=== PATIENT | female | born 1975 | race American Indian/Alaskan Native ===

== ENCOUNTER 2020-06-07 17:13 | Observation (INO) | payer BC ==
[2020-06-07] MEDS ORDERED: ASPIRIN 325 MG TAB PO ONE (17:36)
[2020-06-07 18:13] LABS: Basophils # (Auto) 0.1 K/mm3 (0.0-0.1); Basophils % (Auto) 1.3 % (0.0-1.8); Eosinophils # (Auto) 0.3 K/mm3 (0.0-0.4); Hematocrit 40.2 % (30.3-42.9); Hemoglobin 13.7 gm/dl (10.1-14.3); Lymphocytes # (Auto) 2.8 K/mm3 (1.2-5.4); Lymphocytes % (Auto) 39.4 % (13.4-35.0); Mean Corpuscular HGB Conc 34 % (30-34); Mean Corpuscular Volume 90 fl (79-97); Monocytes # (Auto) 0.5 K/mm3 (0.0-0.8); Monocytes % (Auto) 7.1 % (0.0-7.3); Platelet Count 300 K/mm3 (140-440); Red Blood Count 4.48 M/mm3 (3.65-5.03); Red Cell Distribution Width 13.5 % (13.2-15.2)
--- NOTE | 2020-06-07 18:38 | XRay Report ---
CHEST 2 VIEWS 1748 INDICATION / CLINICAL INFORMATION: CP COMPARISON: 12/11/2017 FINDINGS: SUPPORT DEVICES: None. HEART / MEDIASTINUM: No significant abnormality. LUNGS / PLEURA: Calcified granuloma is again seen on the right. No acute infiltrates are seen. No ple ural effusions are noted. No pneumothorax. ADDITIONAL FINDINGS: No significant additional findings. IMPRESSION: No significant acute abnormality Signer Name: Kj Mathews MD Signed: 06/07/2020 6:33 PM Workstation Name: [id number]
[2020-06-07 18:39] LABS: Alanine Aminotransferase 23 units/L (7-56); Albumin 4.2 g/dL (3.9-5); Blood Urea Nitrogen 14 mg/dL (7-17); Calcium 9.1 mg/dL (8.4-10.2); Hemolysis Index 3
[2020-06-07 18:40] LABS: BUN/Creatinine Ratio 23
--- NOTE | 2020-06-07 18:44 | Emergency Department Report ---
Blank Doc - Documentation Documentation: 45-year-old female that presents with chest pain and shortness of breath. 1- This initial assessment/diagnostic orders/clinical plan/ treatment(s) is/are subject to change based on pt's health status, clinical progression and re- assessment by fellow clinical providers in the ED. Further treatment and workup at subsequent clinical provers discretion. Patient/guardians urged not to elope from ED as their condition may be serious if not clinically assessed and managed. 2-cardiac work-up \
[2020-06-07 19:16] LABS: INR 0.94 (0.87-1.13)
[2020-06-07 19:17] LABS: Partial Thromboplastin Time 26.4 Sec. (24.2-36.6)
[2020-06-07 19:54] LABS: Bilirubin,Urine NEG (Negative); Blood,Urine NEG (Negative); Color,Urine Yellow (Yellow); Mucus,Urine FEW /HPF; Protein,Urine <15 mg/dL mg/dL (Negative); Urobilinogen,Urine < 2.0 mg/dL (<2.0)
[2020-06-07] MEDS: NITROGLYCERIN 0.4 MG TAB SUBL SL PRN ×2 (20:37→21:15)
--- NOTE | 2020-06-07 23:02 | Cat Scan Report ---
CTA CHEST WITH CONTRAST INDICATION / CLINICAL INFORMATION: Shortness of breath and elevated d-dimer. TECHNIQUE: Axial CT images were obtained through the chest after injection of 100 cc Omnipaque 350 IV contrast. 3 plane MIP and/or 3D reconstructions were produced. All CT scans at this location are per formed using CT dose reduction for ALARA by means of automated exposure control. COMPARISON: None available. FINDINGS: PULMONARY ARTERIES: There is adequate opacification of the pulmonary arterial system bilaterally with out intraluminal filling defect suggest acute PTE. THORACIC AORTA: No significant abnormality. HEART: No significant abnormality. CORONARY ARTERY CALCIFICATION: None. MEDIASTINUM / MILAGRO: No significant abnormality. PLEURA: No pleural effusion. No pneumothorax. LUNGS: No acute air space or interstitial disease. ADDITIONAL FINDINGS: None. UPPER ABDOMEN: No acute findings. SKELETAL STRUCTURES: No significant osseous abnormality. IMPRESSION: 1. No CT evidence for pulmonary embolism. 2. No acute findings. Signer Name: Michael Blair MD Signed: 06/07/2020 10:58 PM Workstation Name: [id number]
[2020-06-07] MEDS ORDERED: ONDANSETRON 4 MG/2 ML INJ IV ONE (23:43)
[2020-06-07] MEDS ORDERED: MORPHINE 4 MG/1 ML INJ IV ONE (23:43)
--- NOTE | 2020-06-08 01:51 | Emergency Department Report ---
ED Chest Pain HPI - General Chief Complaint: Chest Pain Stated Complaint: CHEST PAIN X 3 DAYS Time Seen by Provider: 06/07/20 18:42 Source: patient Mode of arrival: Ambulatory Limitations: No Limitations - History of Present Illness Initial Comments: Patient is a 45-year-old -[place] female with a history of morbid obesity, hypertension, TIA, [id number] diabetes, chronic migraine headaches, chronic osteoarthritis, chronic recurrent kidney stones who presents to the ED with complaint of acute onset persistent left-sided chest pain that radiates to the left shoulder and left arm for the last 6 days. Patient states that the pain has been constant and persistent despite taking Aleve. Patient states that she was initially evaluated at an urgent care clinic 2 days ago and given a prescription of Aleve and advised to follow-up with her primary care physician. Patient states that the pain has gotten worse in the last 24 hours. Patient denies dizziness, syncope, cough, traumatic injury, fall, heavy lifting, diaphoresis, nausea and vomiting or abdominal pain, back pain, neck pain, headache, change in vision, sore throat, seizures or palpitations. MD Complaint: chest pain (left-sided chest pain, radiates to left shoulder and arm), other (dyspnea) -: Sudden, days(s) (6) Onset: awoke with symptoms Pain Location: left chest Pain Radiation: LUE Severity: severe Severity scale (0 -10): 7 Quality: aching, sharp, pressure Consistency: constant Improves With: nothing Worsens With: exertion, palpation, movement re: denies: nausea, vomting, dyspnea, sense of impending doom Other Symptoms: denies: cough, fever, syncope, acid taste in mouth, leg swelling, palpitations, burping Treatments Prior to Arrival: none Aspirin use within the Past 7 Days: (0) No - Related Data On Oral Contraceptives: No Home Medications Medication Instructions Recorded Confirmed Last Taken Gemfibrozil [Lopid] 01/16/13 08/21/13 Unknown HYDROcodone/APAP 5-325 [Dime Box 01/16/13 08/21/13 Unknown 5-325 mg TAB] Ibuprofen [Motrin 800 MG tab] 600 mg PO Q8H PRN 01/16/13 08/21/13 Unknown hydroCHLOROthiazide [HCTZ] 01/16/13 08/21/13 Unknown traMADoL [Ultram 50 MG tab] PRN 01/16/13 08/21/[address] (Nf) 50 mg PO BID 08/21/13 08/21/13 Unknown Ondansetron [Zofran Odt] 4 mg PO Q6H PRN 08/21/13 08/21/13 Unknown metFORMIN [Glucophage] 500 mg PO QDAY 08/21/13 08/21/13 Unknown Previous Rx's Medication Instructions Recorded Last Taken Type Gabapentin 100 mg PO TID #90 capsule 01/17/13 Unknown Rx HYDROcodone/ACETAMINOPHEN 1 tab PO Q6H PRN #40 tablet 01/17/13 Unknown Rx [HYDROcodone-Acetaminophen 5-300 mg] Pravastatin Sodium [Pravastatin] 10 mg PO QHS #30 tablet 01/17/13 Unknown Rx glipiZIDE [glipiZIDE ER] 10 mg PO QAM #30 tab.er.24 01/17/13 Unknown Rx lisinopriL [Zestril TAB] 40 mg PO QDAY #30 tablet 01/17/13 Unknown Rx Butalb/Acetamin/Caff 50-325-40 2 tab PO Q6HR PRN #30 tablet 08/22/13 Unknown Rx [Fioricet 50-325-40] HYDROcodone/APAP 5-325 [Dime Box 1 each PO Q4HR PRN #20 tablet 10/18/14 Unknown Rx 5/325] Ibuprofen [Motrin] 800 mg PO Q8HR PRN #30 tablet 10/18/14 Unknown Rx Ciprofloxacin HCl [Ciprofloxacin 500 mg PO BID #20 tablet 02/18/15 Unknown Rx TAB] HYDROcodone/APAP 5-325 [Dime Box 1 - 2 each PO Q6HR PRN #14 tablet 02/18/15 Unknown Rx 5/325] Promethazine [Phenergan TAB] 25 mg PO Q6HR PRN #20 tab 02/18/15 Unknown Rx Promethazine [Phenergan] 25 mg NV Q6HR PRN #10 supp.rect 02/18/15 Unknown Rx Doxycycline Hyclate [Doxycycline 100 mg PO Q12HR 10 Days #20 tab 12/11/17 Unknown Rx Hyclate TAB] methylPREDNISolone [Medrol] 4 mg PO DAILY 6 Days #1 tab.ds.pk 12/11/17 Unknown Rx Allergies Allergy/AdvReac Type Severity Reaction Status Date / Time No Known Allergies Allergy Verified 08/21/13 20:03 Heart Score - HEART Score History: Moderately suspicious EKG: Non-specific Age: 45-65 Risk factors: > 3 risk factors or hx of atherosclerotic disease Troponin: < normal limit HEART Score: 5 - EKG Read Time Time EKG Completed: 17:35 EKG Read Time: 17:39 - Critical Actions Critical Actions: 4-6 pts:12-16.6% risk of adverse cardiac event. Should be admitted ED Review of Systems ROS: Stated complaint: CHEST PAIN X 3 DAYS Other details as noted in HPI Constitutional: denies: chills, fever Eyes: denies: eye pain, eye discharge, vision change ENT: denies: ear pain, throat pain Respiratory: denies: cough, shortness of breath, wheezing Cardiovascular: chest pain (left-sided chest pain), dyspnea on exertion. denies: palpitations, syncope, paroxysmal nocturnal dyspnea, other Endocrine: no symptoms reported Gastrointestinal: denies: abdominal pain, nausea, vomiting, diarrhea, constipation, hematemesis Genitourinary: denies: urgency, dysuria, discharge Musculoskeletal: denies: back pain, joint swelling, arthralgia Skin: denies: rash, lesions Neurological: denies: headache, weakness, paresthesias Psychiatric: denies: anxiety, depression Hematological/Lymphatic: denies: easy bleeding, easy bruising ED Past Medical Hx - Past Medical History Hx Hypertension: Yes Hx CVA: Yes (TIA-dx 05/2017) Hx Congestive Heart Failure: No Hx Diabetes: Yes Hx Arthritis: Yes Hx Kidney Stones: Yes Hx Asthma: No Hx COPD: No Additional medical history: Chronic chest pain, chronic headache, migraine - Surgical History Additional Surgical History: left knee surgery,uterine ablasion - Social History Smoking Status: Never Smoker Substance Use Type: Alcohol - Medications Home Medications: Home Medications Medication Instructions Recorded Confirmed Last Taken Type Gemfibrozil [Lopid] 01/16/13 08/21/13 Unknown History HYDROcodone/APAP 5-325 [Dime Box 01/16/13 08/21/13 Unknown History 5-325 mg TAB] Ibuprofen [Motrin 800 MG tab] 600 mg PO Q8H PRN 01/16/13 08/21/13 Unknown His tory hydroCHLOROthiazide [HCTZ] 01/16/13 08/21/13 Unknown History traMADoL [Ultram 50 MG tab] PRN 01/16/13 08/21/13 Unknown History Gabapentin 100 mg PO TID #90 capsule 01/17/13 08/21/13 Unknown Rx HYDROcodone/ACETAMINOPHEN 1 tab PO Q6H PRN #40 tablet 01/17/13 08/21/13 Unknown Rx [HYDROcodone-Acetaminophen 5-300 mg] Pravastatin Sodium [Pravastatin] 10 mg PO QHS #30 tablet 01/17/13 08/21/13 Unknown Rx glipiZIDE [glipiZIDE ER] 10 mg PO QAM #30 tab.er.24 01/17/13 08/21/13 Unknown Rx lisinopriL [Zestril TAB] 40 mg PO QDAY #30 tablet 01/17/13 08/21/[address] (Nf) 50 mg PO BID 08/21/13 08/21/13 Unknown History Ondansetron [Zofran Odt] 4 mg PO Q6H PRN 08/21/13 08/21/13 Unknown History metFORMIN [Glucophage] 500 mg PO QDAY 08/21/13 08/21/13 Unknown History Butalb/Acetamin/Caff 50-325-40 2 tab PO Q6HR PRN #30 tablet 08/22/13 Unknown Rx [Fioricet 50-325-40] HYDROcodone/APAP 5-325 [Dime Box 1 each PO Q4HR PRN #20 tablet 10/18/14 Unknown Rx 5/325] Ibuprofen [Motrin] 800 mg PO Q8HR PRN #30 tablet 10/18/14 Unknown Rx Ciprofloxacin HCl [Ciprofloxacin 500 mg PO BID #20 tablet 02/18/15 Unknown Rx TAB] HYDROcodone/APAP 5-325 [Dime Box 1 - 2 each PO Q6HR PRN #14 tablet 02/18/15 Unknown Rx 5/325] Promethazine [Phenergan TAB] 25 mg PO Q6HR PRN #20 tab 02/18/15 Unknown Rx Promethazine [Phenergan] 25 mg NV Q6HR PRN #10 supp.rect 02/18/15 Unknown Rx Doxycycline Hyclate [Doxycycline 100 mg PO Q12HR 10 Days #20 tab 12/11/17 Unknown Rx Hyclate TAB] methylPREDNISolone [Medrol] 4 mg PO DAILY 6 Days #1 tab.ds.pk 12/11/17 Unknown Rx ED Physical Exam - General Limitations: No Limitations General appearance: alert, in no apparent distress - Head Head exam: Present: atraumatic, normocephalic, normal inspection - Eye Eye exam: Present: normal appearance, PERRL, EOMI Pupils: Present: normal accommodation - ENT ENT exam: Present: normal exam, normal orophraynx, mucous membranes moist, TM's normal bilaterally, normal external ear exam - Neck Neck exam: Present: normal inspection, full ROM - Respiratory Respiratory exam: Present: normal lung sounds bilaterally, chest wall tenderness (Palpable reproducible left-sided chest tenderness). Absent: respiratory distress, wheezes, rales, rhonchi, accessory muscle use, decreased breath sounds, prolonged expiratory - Cardiovascular Cardiovascular Exam: Present: regular rate, normal rhythm, normal heart sounds. Absent: systolic murmur, diastolic murmur, rubs, gallop - GI/Abdominal GI/Abdominal exam: Present: soft, normal bowel sounds. Absent: tenderness, gua rding, rebound, hyperactive bowel sounds, hypoactive bowel sounds, organomegaly - Extremities Exam Extremities exam: Present: normal inspection, full ROM, normal capillary refill - Back Exam Back exam: Present: normal inspection, full ROM. Absent: tenderness, CVA tenderness (R), CVA tenderness (L), muscle spasm, paraspinal tenderness, vertebral tenderness - Neurological Exam Neurological exam: Present: alert, oriented X3, CN II-XII intact, normal gait, reflexes normal - Psychiatric Psychiatric exam: Present: normal affect, normal mood - Skin Skin exam: Present: warm, dry, intact, normal color. Absent: rash ED Course Vital Signs 06/07/20 06/07/20 06/07/20 17:22 19:50 19:51 Temperature 98.8 F Pulse Rate 84 80 79 Respiratory 18 21 20 Rate Blood Pressure 137/89 137/89 Blood Pressure 181/117 [Right] O2 Sat by Pulse 97 98 98 Oximetry 06/07/20 06/07/20 06/07/20 19:53 20:00 20:15 Temperature Pulse Rate 84 80 80 Respiratory 24 23 17 Rate Blood Pressure 137/89 144/91 144/91 Blood Pressure [Right] O2 Sat by Pulse 98 98 99 Oximetry 06/07/20 06/07/20 06/07/20 20:30 20:37 20:45 Temperature Pulse Rate 67 74 75 Respiratory 17 12 Rate Blood Pressure 154/90 154/90 154/90 Blood Pressure [Right] O2 Sat by Pulse 100 97 Oximetry 06/07/20 21:15 Temperature Pulse Rate 71 Respiratory Rate Blood Pressure 146/92 Blood Pressure [Right] O2 Sat by Pulse Oximetry MICHAEL score - Michael Score Age > 65: (0) No Aspirin use within the Past 7 Days: (0) No 3 or more CAD Risk Factors: (1) Yes 2 or more Angina events in past 24 hrs: (1) Yes Known CAD with more than 50% Stenosis: (0) No Elevated Cardiac Markers: (0) No ST Deviation Greater than 0.5mm: (0) No MICHAEL Score: 2 ED Medical Decision Making - Lab Data Result diagrams: 06/07/20 17:57 06/07/20 17:57 - EKG Data EKG shows normal: sinus rhythm Rate: normal - EKG Data Interpretation: normal EKG 06/08/20 01:55 EKG shows normal sinus rhythm with a ventricular rate of [address] or T wave abnormalities. - Radiology Data Radiology results: report reviewed, image reviewed [address] [address] XRay Report Signed Patient: CUBA AHMADI MR#: [id number] : 1975 Acct:[id number] Age/Sex: 45 / F ADM Date: 06/07/20 Loc: ED Attending Dr: Ordering Physician: AWILDA ORDOÑEZ MD Date of Service: 06/07/20 Procedure(s): XR chest routine 2V Accession Number(s): [id number] cc: AWILDA ORDOÑEZ MD Fluoro Time In Minutes: CHEST 2 VIEWS 1748 INDICATION / CLINICAL INFORMATION: CP COMPARISON: 12/11/2017 FINDINGS: SUPPORT DEVICES: None. HEART / MEDIASTINUM: No significant abnormality. LUNGS / PLEURA: Calcified granuloma is again seen on the right. No acute infiltrates are seen. No pleural effusions are noted. No pneumothorax. ADDITIONAL FINDINGS: No significant additional findings. IMPRESSION: No significant acute abnormality Signer Name: Kj Mathews MD Signed: 06/07/2020 6:33 PM Workstation Name: [id number] Transcribed By: GJ Dictated By: Kj Mathews MD Electronically Authenticated By: Kj Mathews MD Signed Date/Time: 06/07/20 576 DD/ 31 TD/TT: [facility] [address] [place] [address] Cat Scan Report Signed Patient: CUBA AHMADI MR#: [id number] : 1975 Acct:[id number] Age/Sex: 45 / F ADM Date: 06/07/20 Loc: ED Attending Dr: Ordering Physician: FLETCHER ELLIS Date of Service: 06/07/20 Procedure(s): CT angio chest Accession Number(s): [id number] cc: FLETCHER ELLIS CTA CHEST WITH CONTRAST INDICATION / CLINICAL INFORMATION: Shortness of breath and elevated d-dimer. TECHNIQUE: Axial CT images were obtained through the chest after injection of 100 cc Omnipaque 350 IV contrast. 3 plane MIP and/or 3D reconstructions were produced. All CT scans at this location are performed using CT dose reduction for ALARA by means of automated exposure control. COMPARISON: None available. FINDINGS: PULMONARY ARTERIES: There is adequate opacification of the pulmonary arterial system bilaterally without intraluminal filling defect suggest acute PTE. THORACIC AORTA: No significant abnormality. HEART: No significant abnormality. CORONARY ARTERY CALCIFICATION: None. MEDIASTINUM / MILAGRO: No significant abnormality. PLEURA: No pleural effusion. No pneumothorax. LUNGS: No acute air space or interstitial disease. ADDITIONAL FINDINGS: None. UPPER ABDOMEN: No acute findings. SKELETAL STRUCTURES: No significant osseous abnormality. IMPRESSION: 1. No CT evidence for pulmonary embolism. 2. No acute findings. Signer Name: Michael Blair MD Signed: 06/07/2020 10:58 PM Workstation Name: [id number] Transcribed By: RT Dictated By: Michael Blair MD Electronically Authenticated By: Michael Blair MD Signed Date/Time: 06/07/202257 DD/ 54 TD/TT: - Medical Decision Making This is a 45-year-old -[place] female with a history of morbid obesity, hypertension, TIA, [id number] diabetes, chronic migraine headaches, chronic osteoarthritis, chronic recurrent kidney stones who presents to the ED with complaint of acute onset persistent left-sided chest pain that radiates to the left shoulder and left arm for the last 6 days. Patient states that the pain has been constant and persistent despite taking Aleve. Patient states that she was initially evaluated at an urgent care clinic 2 days ago and given a prescription of Aleve and advised to follow-up with her primary care physician. Patient states that the pain has gotten worse in the last 24 hours. In the ED, patient is alert and oriented x3 and is not in any distress. Patient was initially hypertensive in triage but afebrile. EKG shows normal sinus rhythm wi th a ventricular rate of [address] or T wave abnormalities. Chest x-ray shows no acute cardiopulmonary abnormalities or pneumonitis. All lab test results were reviewed and are all nonactionable including repeat 3-hour troponin levels. The D-dimer was however elevated and the CTA chest with IV contrast showed no evidence of pulmonary embolism or any cardiopulmonary abnormalities and pneumonitis. Patient was initially treated in the ED with aspirin and nitroglycerin with no relief of pain. Patient was thereafter given morphine 4 mg IV and antiemetic Zofran 4 mg IV x1. On reevaluation, patient's pain is moderately controlled with medications. Patient's heart score is 5 but she is PERC negative per Wells criteria. Patient's case was discussed with the ED attending physician Dr. Montero who advised the patient be admitted to the hospital for further evaluation. Patient was therefore admitted to the hospital for further evaluation by the hospitalist physician Dr. Boggs, and Ms Jessenia KENDALL admitted the patient to the hospital - Differential Diagnosis ACS; PE; Pneumonia; dissection; Muscle strain; Costochondritis Critical Care Time: Yes Critical care attestation.: If time is entered above; I have spent that time in minutes in the direct care of this critically ill patient, excluding procedure time. Critical Care Time: 35 ED Disposition Clinical Impression: Exertional shortness of breath, Angina pectoris, unspecified, Left-sided chest pain Disposition: DC-09 OP ADMIT IP TO THIS HOSP Is pt being admited?: Yes Does the pt Need Aspirin: Yes Condition: Stable Instructions: Nonspecific Chest Pain, Adult, Angina, [id number] Referrals: PRIMARY CARE, [Primary Care Provider] - 3-5 Days Time of Disposition: 02:04 Print Language: FAROESE
[2020-06-08] MEDS ORDERED: ACETAMINOPHEN 325 MG TAB PO PRN ×3 (03:07→04:30)
[2020-06-08] MEDS ORDERED: MORPHINE 2 MG/1 ML INJ IV PRN (03:07)
[2020-06-08] MEDS ORDERED: ONDANSETRON 4 MG/2 ML INJ IV PRN ×2 (03:07→04:30)
[2020-06-08] MEDS ORDERED: ALUM-MAG HYDROXIDE-SIMETHICONE 200-200-20MG/5ML ORAL LIQD 30 ML PO PRN (04:30)
[2020-06-08] MEDS ORDERED: SENNOSIDES 8.6 MG TAB PO PRN (04:30)
[2020-06-08] MEDS ORDERED: traMADol 50 MG TAB PO PRN (04:30)
[2020-06-08] MEDS ORDERED: MAGNESIUM HYDROXIDE (MOM) ORAL LIQD UDC PO PRN (04:30)
[2020-06-08] MEDS ORDERED: METOCLOPRAMIDE 10 MG/2 ML INJ IV PRN (04:30)
--- NOTE | 2020-06-08 04:41 | History and Physical Report ---
History of Present Illness Date of examination: 06/08/20 Date of admission: 06/08/20 03:07 Chief complaint: Chest Pain History of present illness: Patient is a 45-year-old -[place] female with a history of morbid obesity, hypertension, TIA, sae-jwegfxs-nhxpcfepw diabetes, chronic migraine headaches, chronic osteoarthritis, chronic recurrent kidney stones who presents to the ED with complaint of acute onset persistent left-sided chest pain that radiates to the left shoulder and left arm for the last 6 days. Patient states that the pain has been constant and persistent despite taking Aleve. Patient states that she was initially evaluated at an urgent care clinic 2 days ago and given a prescription of Aleve and advised to follow-up with her primary care physician. Patient states that the pain has gotten worse in the last 24 hours. Patient denies dizziness, syncope, cough, traumatic injury, fall, heavy lifting, diaphoresis, nausea and vomiting or abdominal pain, back pain, neck pain, headache, change in vision, sore throat, seizures or palpitations. ED work-up WBC 7.2 hemoglobin 13.7, platelets 300, sodium 138, D-dimer 262.5, potassium 4.0, creatinine 0.6, serum glucose 79, calcium 9.1, magnesium 1.9. CTA of the chest negative for PE. Checks x-ray no acute finding EKG and troponin no acute finding. Patient seen in the ED at bedside patient alert and oriented x3. Patient reports chest pain radiating to the left arm pain level is 10/10. Patient is on sublingual nitro for pain auto customize painter consulted. Echo and stress test ordered. I reviewed patient medical record, lab values, and vital signs patient is admitted secondary to chest pain to rule out ischemic heart disease. Past History Past Medical History: diabetes, hypertension, hyperlipidemia, other Past Surgical History: hysterectomy, tonsillectomy, Other (knee replacement- gallstone removal) Social history: lives with family Family history: hypertension Medications and Allergies Allergies Allergy/AdvReac Type Severity Reaction Status Date / Time No Known Allergies Allergy Verified 08/21/13 20:03 Home Medications Medication Instructions Recorded Confirmed Last Taken Type Gemfibrozil [Lopid] 01/16/13 08/21/13 Unknown History HYDROcodone/APAP 5-325 [[place] 01/16/13 08/21/13 Unknown History 5-325 mg TAB] Ibuprofen [Motrin 800 MG tab] 600 mg PO Q8H PRN 01/16/13 08/21/13 Unknown History hydroCHLOROthiazide [HCTZ] 01/16/13 08/21/13 Unknown History traMADoL [Ultram 50 MG tab] PRN 01/16/13 08/21/13 Unknown History Gabapentin 100 mg PO TID #90 capsule 01/17/13 08/21/13 Unknown Rx HYDROcodone/ACETAMINOPHEN 1 tab PO Q6H PRN #40 tablet 01/17/13 08/21/13 Unknown Rx [HYDROcodone-Acetaminophen 5-300 mg] Pravastatin Sodium [Pravastatin] 10 mg PO QHS #30 tablet 01/17/13 08/21/13 Unknown Rx glipiZIDE [glipiZIDE ER] 10 mg PO QAM #30 tab.er.24 01/17/13 08/21/13 Unknown Rx lisinopriL [Zestril TAB] 40 mg PO QDAY #30 tablet 01/17/13 08/21/[address] (Nf) 50 mg PO BID 08/21/13 08/21/13 Unknown History Ondansetron [Zofran Odt] 4 mg PO Q6H PRN 08/21/13 08/21/13 Unknown History metFORMIN [Glucophage] 500 mg PO QDAY 08/21/13 08/21/13 Unknown History Butalb/Acetamin/Caff 50-325-40 2 tab PO Q6HR PRN #30 tablet 08/22/13 Unknown Rx [Fioricet 50-325-40] HYDROcodone/APAP 5-325 [[place] 1 each PO Q4HR PRN #20 tablet 10/18/14 Unknown Rx 5/325] Ibuprofen [Motrin] 800 mg PO Q8HR PRN #30 tablet 10/18/14 Unknown Rx Ciprofloxacin HCl [Ciprofloxacin 500 mg PO BID #20 tablet 02/18/15 Unknown Rx TAB] HYDROcodone/APAP 5-325 [[place] 1 - 2 each PO Q6HR PRN #14 tablet 02/18/15 Unknown Rx 5/325] Promethazine [Phenergan TAB] 25 mg PO Q6HR PRN #20 tab 02/18/15 Unknown Rx Promethazine [Phenergan] 25 mg [place] Q6HR PRN #10 supp.rect 02/18/15 Unknown Rx Doxycycline Hyclate [Doxycycline 100 mg PO Q12HR 10 Days #20 tab 12/11/17 Unknown Rx Hyclate TAB] methylPREDNISolone [Medrol] 4 mg PO DAILY 6 Days #1 tab.ds.pk 12/11/17 Unknown Rx Active Meds: Active Medications Acetaminophen (Acetaminophen 325 Mg Tab) 650 mg PO Q4H PRN PRN Reason: Pain MILD(1-3)/Fever >100.5/STOUT Acetaminophen (Acetaminophen 325 Mg Tab) 650 mg PO Q4H PRN PRN Reason: Pain MILD(1-3)/Fever >100.5/STOUT Acetaminophen (Acetaminophen 325 Mg Tab) 650 mg PO Q6H PRN PRN Reason: Pain, Mild (1-3) Al Hydrox/Mg Hydrox/Simethicone (Alum-Mag Hydroxide-Simethicone [phone]/5ml Oral Liqd 30 Ml) 30 ml PO Q4H PRN PRN Reason: Indigestion Aspirin (Aspirin 81 Mg Tab Chew) 81 mg PO QDAY PRADEEP Atorvastatin Calcium (Atorvastatin 40 Mg Tab) 40 mg PO QHS PRADEEP Famotidine (Famotidine 20 Mg/2 Ml Inj) 20 mg IV BID PRADEEP Magnesium Hydroxide (Magnesium Hydroxide (Mom) Oral Liqd Udc) 30 ml PO Q4H PRN PRN Reason: Constipation Metoclopramide HCl (Metoclopramide 10 Mg/2 Ml Inj) 10 mg IV Q6H PRN PRN Reason: Nausea And Vomiting Morphine Sulfate (Morphine 2 Mg/1 Ml Inj) 2 mg IV Q4H PRN PRN Reason: Pain, Moderate (4-6) Nitroglycerin (Nitroglycerin 0.4 Mg Tab Subl) 0.4 mg SL .Q5MIN PRN PRN Reason: Chest Pain Last Admin: 06/07/20 21:15 Dose: 0.4 mg Documented by: Ondansetron HCl (Ondansetron 4 Mg/2 Ml Inj) 4 mg IV Q8H PRN PRN Reason: Nausea And Vomiting Ondansetron HCl (Ondansetron 4 Mg/2 Ml Inj) 4 mg IV Q8H PRN PRN Reason: Nausea And Vomiting Pantoprazole Sodium (Pantoprazole 40 Mg Tab) 40 mg PO QDAY PRADEEP Senna (Sennosides 8.6 Mg Tab) 8.6 mg PO Q12HR PRN PRN Reason: Constipation Sodium Chloride (Sodium Chloride 0.9% 10 Ml Flush Syringe) 10 ml IV BID PRADEEP Sodium Chloride (Sodium Chloride 0.9% 10 Ml Flush Syringe) 10 ml IV PRN PRN PRN Reason: LINE FLUSH Sodium Chloride (Sodium Chloride 0.9% 10 Ml Flush Syringe) 10 ml IV BID PRADEEP Sodium Chloride (Sodium Chloride 0.9% 10 Ml Flush Syringe) 10 ml IV PRN PRN PRN Reason: LINE FLUSH Tramadol HCl (Tramadol 50 Mg Tab) 50 mg PO Q6H PRN PRN Reason: Pain, Moderate (4-6) Review of Systems Ears, nose, mouth and throat: no epistaxis, no bleeding gums Breasts: no discharge Cardiovascular: chest pain, shortness of breath Respiratory: no congestion, no wheezing Gastrointestinal: no melena Genitourinary Female: no vaginal itching Rectal: no itching, no hemorrhoids Musculoskeletal: no muscle weakness Integumentary: no rash, no pruritis Neurological: no convulsions Psychiatric: no suicidal ideation, no disorientation, no hallucinations Endocrine: no excessive thirst Hematologic/Lymphatic: no easy bruising, no easy bleeding Allergic/Immunologic: no urticaria Exam - Constitutional Vitals: Temp Pulse Resp BP Pulse Ox 98.8 F 58 L 17 115/72 98 06/07/20 17:22 06/08/20 03:31 06/08/20 03:31 06/08/20 03:31 06/08/20 03:31 General appearance: Present: mild distress, well-nourished, obese - EENT Eyes: Present: PERRL. Absent: conjunctival injection ENT: hearing intact, clear oral mucosa - Neck Neck: Present: supple, normal ROM - Respiratory Respiratory effort: normal Respiratory: bilateral: CTA - Cardiovascular Heart rate: 58 Heart Sounds: Present: S1 & S2. Absent: rub, click - Extremities Extremities: pulses symmetrical, No edema Peripheral Pulses: within normal limits - Abdominal General gastrointestinal: Present: soft, non-tender, non-distended, normal bowel sounds Female genitourinary: Present: normal - Integumentary Integumentary: Present: clear, warm, dry - Musculoskeletal Musculoskeletal: gait normal, strength equal bilaterally - Psychiatric Psychiatric: appropriate mood/affect, intact judgment & insight, cooperative - Neurologic Neurologic: CNII-XII intact, moves all extremities - Allied Health Allied health notes reviewed: nursing HEART Score - HEART Score EKG: Non-specific Age: 45-65 Risk factors: > 3 risk factors or hx of atherosclerotic disease Troponin: Troponin T < 0.010 ng/mL (0.00-0.029) 06/07/20 23:24 Troponin: < normal limit - Critical Actions Critical Actions: 4-6 pts:12-16.6% risk of adverse cardiac event. Should be admitted Results - Labs CBC & Chem 7: 06/07/20 17:57 06/07/20 17:57 Labs: Abnormal lab results 06/07/20 06/07/20 Range/Units 17:57 20:11 Lymph % (Auto) 39.4 H (13.4-35.0) % D-Dimer 262.52 H (0-234) ng/mlDDU Assessment and Plan - Patient Problems (1) Angina pectoris, unspecified Current Visit: Yes Status: Acute Plan to address problem: continue cardioprotective measures ASA, statin and monitor cardiac enzmes ECHO and stress test ordered. Consulted auto customize painter (2) Diabetes 1.5, managed as type 2 Onset Date: 01/17/13 Current Visit: No Status: Acute Plan to address problem: monitor blood sugar with SSI Check HGA1c (3) Hypertension Current Visit: Yes Status: Acute Plan to address problem: Monitor blood pressure Resume BP medicine CONDOMINIUM PROPERTY MANAGER Hydralazine (4) Hyperlipidemia Current Visit: Yes Status: Acute Plan to address problem: continue statin (5) Obesity Current Visit: Yes Status: Acute Plan to address problem: Discussed lifestyle modification Weight management-advised to avoid fried foods. (6) DVT prophylaxis Current Visit: Yes Status: Acute Plan to address problem: Subcutaneous Lovenox (7) Full code status Current Visit: Yes Status: Acute Plan to address problem: Patient is full code
[2020-06-08] MEDS: NITROGLYCERIN 0.4 MG TAB SUBL SL PRN (05:03)
[2020-06-08] MEDS ORDERED: hydrALAZINE 20 MG/1 ML INJ IV PRN (05:05)
[2020-06-08] MEDS ORDERED: traZODone 50 MG TAB PO PRN (05:06)
[2020-06-08 06:22] LABS: Basophils % (Auto) 0.6 % (0.0-1.8); Eosinophils # (Auto) 0.4 K/mm3 (0.0-0.4); Eosinophils % (Auto) 7.3 % (0.0-4.3); Hematocrit 39.3 % (30.3-42.9); Hemoglobin 13.3 gm/dl (10.1-14.3); Lymphocytes # (Auto) 2.2 K/mm3 (1.2-5.4); Lymphocytes % (Auto) 42.9 % (13.4-35.0); Mean Corpuscular HGB Conc 34 % (30-34); Mean Corpuscular Volume 90 fl (79-97); Monocytes # (Auto) 0.5 K/mm3 (0.0-0.8); Monocytes % (Auto) 8.9 % (0.0-7.3); Platelet Count 266 K/mm3 (140-440); Red Blood Count 4.34 M/mm3 (3.65-5.03); Red Cell Distribution Width 13.6 % (13.2-15.2)
[2020-06-08 06:41] LABS: Blood Urea Nitrogen 10 mg/dL (7-17); Calcium 8.3 mg/dL (8.4-10.2); Chol/HDL Ratio 2.53 %; HDL Cholesterol 60 mg/dL (40-59); Hemolysis Index 12; LDL Cholesterol,Direct 83 mg/dL (50-130)
[2020-06-08 06:42] LABS: BUN/Creatinine Ratio 17
[2020-06-08] MEDS: INSULIN REGULAR, HUMAN 100 UNITS/1 ML SUB-Q SCH ×2 (07:35→12:34)
[2020-06-08] MEDS ORDERED: REGADENOSON 0.4 MG/5 ML INJ IV ONE ×2 (08:25→08:26)
[2020-06-08 09:28] VITALS: BP 144/91
[2020-06-08] MEDS ORDERED: KETOROLAC 30 MG/1 ML INJ IV NR (09:59)
[2020-06-08] MEDS ORDERED: FAMOTIDINE 20 MG/2 ML INJ IV SCH (10:00)
[2020-06-08] MEDS ORDERED: PANTOPRAZOLE 40 MG TAB PO SCH (10:00)
--- NOTE | 2020-06-08 10:43 | Nuclear Medicine Report ---
APPROVED REPORT Exam: Nuclear Stress Test Indication: Chest pain Patient Location: [address] [place] [address] Room #: 489 Ht: 5 ft 0 in Wt: 246 lbs BSA: 2.04 m2 HR: 59 bpm BP: 148/92 mmHg BMI: 48.03 Medical History Medical History: HTN,TIA,NON -INSULIN DEPENDENT DIABETES Medications: , Allergies: CYCLOBENZAPRINE, TRAMADOL Stress Test Details Stress Test: Pharmacologic stress testing performed using 0.4 mg of regadenoson per 5 mL given IV over 10 seconds. Reason for pharmacologic stress test: physical limitation. HR Resting HR: 59 bpmMax Heart Rate (APMHR): 174 bpm Max HR Achieved: 96 bpmTarget HR (85% APMHR): 147 bpm % of APMHR: 55 Recovery HR: 78 bpm BP Resting BP: 148/92 mmHg Max BP: 148/92 mmHg Recovery BP: 135/84 mmHg ECG Resting ECG: SINUS BRADYCARDIA WITH SINUS ARRHYTHMIA Clinical Reason for Termination: Completed protocol Stress Symptoms: None, None NM EXAM: Myocardial Perfusion REST/STRESS Resting Data Rest SPECT myocardial perfusion imaging was performed in supine position 45 minutes following the intravenous injection of 10 mCi of Tc-99m Myoview. Time of rest injection: 0700 Pharmacologic Stress Pharmacologic stress test was performed by injecting Regadenoson 0.4 mg IV push followed by the intravenous injection of 28 mCi of Tc-99m Myoview. Time of stress injection: 0831 Gated Stress SPECT was performed 30 minutes after stress injection. The images were gated to evaluate regional wall motion and calculate left ventricular ejection fraction. Study Data TID = 1.05. Perfusion Nuclear Conclusion ECG Findings: negative for ischemia Clinical Findings: negative for ischemia Nuclear Findings: negative for ischemia Exercise Capacity: not assessed Left Ventricular Function: normal Normal study. No scintigraphic evidence for myocardial ischemia or scar. Normal left ventricular size and function with no regional wall motion abnormalities.
--- NOTE | 2020-06-08 11:07 | Treadmill Report ---
[facility] Test Date: 2020-06-08 Test Time: 05:56:06 Pat Name: CUBA AHMADI Department: Room: A489 1 Gender: F Travel Assistant: Elsie Gaytan : 1975 Requested By: BEATRIS GARCIA Order Number: [id number] Reading MD: Renny Puentes Interpretive Statements negative lexiscan ekg imaging pending Electronically Signed On 06-08-2020 11:07:21 EDT by Renny Puentes
--- NOTE | 2020-06-08 12:44 | Discharge Summary ---
Providers - Providers Date of Admission: 06/08/20 03:07 Date of discharge: 06/08/20 Attending physician: HERON DEL CID 06/08/20 Consult to Cardiac Rehabilitation [CONS] Routine Reason For Exam: Phase I 06/08/20 04:30 Consult to Cardiology [CONS] Routine Consulting Provider: JAMI PUENTES Reason For Exam: chest pain Consult to Physician [CONS] Stat Comment: Consulting Provider: AVA GARCIA Physician Instructions: Reason For Exam: chest pain Primary care physician: INSTRUCTIONAL TECHNOLOGY INSTRUCTOR Hospitalization Condition: Stable Pertinent studies: CXR Chest CTA Myocardial stress test 2d echo Hospital course: Patient is a 45-year-old -Citizen Of [place] female with a history of morbid obesity, hypertension, TIA, qft-muzqriv-lqeqjnrtn diabetes, chronic migraine headaches, chronic osteoarthritis, chronic recurrent kidney stones who presents to the ED with complaint of acute onset persistent left-sided chest pain that radiates to the left shoulder and left arm for the last 6 days. ED work-up showed: WBC 7.2 hemoglobin 13.7, platelets 300, sodium 138, D-dimer 262.5, potassium 4.0, creatinine 0.6, serum glucose 79, calcium 9.1, magnesium 1.9. CTA of the chest negative for PE. Checks x-ray no acute finding EKG and troponin no acute finding. Patient was admitted and underwent myocardial stress test which was normal. Patient was then discharged home in stable condition with outpatient follow-up. Disposition: TO HOME OR SELFCARE Final Discharge Diagnosis (Prints w/discharge instructions): Acute chest pain likely musculoskeletal. Diabetes mellitus type 2. Hypertension. Hyperlipidemia. Morbid obesity Time spent for discharge: 34 minutes Core Measure Documentation - Palliative Care Palliative Care/ Comfort Measures: Not Applicable - Core Measures Any of the following diagnoses?: none Exam - Physical Exam Narrative exam: GENERAL: well-developed morbidly obese -Citizen Of [place] female lying on bed appeared to be in no discomfort. HEENT: Normocephalic. Atraumatic. No conjunctival congestion or icterus. Patient has moist mucous membranes. NECK: Supple. Trachea midline. CHEST/LUNGS: Clear to auscultated bilaterally, breathing nonlabored. No wheezes crackles or rhonchi. HEART/CARDIOVASCULAR: Regular in rate and rhythm. S1 and S2 positive. ABDOMEN: Abdomen is soft, nontender. Patient has normal bowel sounds. SKIN: There is no rash. Warm and dry. NEURO: No focal motor deficit. Follows command. MUSCULOSKELETAL: No joint effusion or tenderness. EXTRIMITY: No edema, no cyanosis or clubbing. PSYCH: Cooperative. - Constitutional Vitals: Temp Pulse Resp BP Pulse Ox 97.8 F 61 17 144/91 98 06/08/20 04:59 06/08/20 05:27 06/08/20 10:45 06/08/20 08:35 06/08/20 10:45 Plan Activity: advance as tolerated Weight Bearing Status: Weight Bear as Tolerated Diet: low fat, low salt Additional Instructions: Follow-up with Dr. Puentes already in 1 week Follow up with: PRIMARY CARE, [Primary Care Provider] - 3-5 Days JAMI PUENTES MD [Staff Physician] - 7 Days Prescriptions: Pantoprazole [Protonix TAB] 40 mg PO QDAY #30 tablet
--- NOTE | 2020-06-08 13:05 | Consultation ---
History of Present Illness Consult date: 06/08/20 Requesting physician: BEATRIS GARCIA Consult reason: chest pain History of present illness: This patient is a 45-year-old female with a significant history of hypertension, TIA, diabetes, chronic kidney stones and migraines. She is previously unknown to our practice. She does not currently follow with cardiology. Patient presents to [facility] ER with complaint of chest pain and nausea vomiting x6 days. Chest pain is described as sharp 10 out of 10 worse with inspiration and reproducible with light palpation at the left sternal border. Patient denies any shortness of breath weakness dizziness syncope abdominal pain diarrhea or recent illness, no known exposures. ECG reviewed no ST segment elevation troponins are negative x3. D-dimer is minimally elevated and nonspecific. CTA chest is negative for pulmonary thromboembolism. Echocardiogram reviewed which showed normal ejection fraction normal echo. Lexiscan MPI stress test performed which showed no reversible ischemia. Telemetry reviewed which shows sinus rhythm 62 with no events. Routine labs reviewed which show no electrolyte abnormalities. Past History Past Medical History: diabetes, hypertension, hyperlipidemia, other (See HPI) Past Surgical History: hysterectomy, tonsillectomy, Other (knee replacement- gallstone removal) Social history: lives with family Family history: hypertension Medications and Allergies Allergies Allergy/AdvReac Type Severity Reaction Status Date / Time cyclobenzaprine Allergy Itching Verified 06/08/20 05:36 [From Flexeril] tramadol Allergy Itching Verified 06/08/20 05:36 Home Medications Medication Instructions Recorded Confirmed Last Taken Type hydroCHLOROthiazide [HCTZ] 01/16/13 08/21/13 Unknown History Gabapentin 100 mg PO TID #90 capsule 01/17/13 08/21/13 Unknown Rx Pravastatin Sodium [Pravastatin] 10 mg PO QHS #30 tablet 01/17/13 08/21/13 Unknown Rx lisinopriL [Zestril TAB] 40 mg PO QDAY #30 tablet 01/17/13 08/21/13 Unknown Rx metFORMIN [Glucophage] 500 mg PO QDAY 08/21/13 08/21/13 Unknown History Pantoprazole [Protonix TAB] 40 mg PO QDAY #30 tablet 06/08/20 Unknown Rx Active Meds: Active Medications Acetaminophen (Acetaminophen 325 Mg Tab) 650 mg PO Q4H PRN PRN Reason: Pain MILD(1-3)/Fever >100.5/STOUT Al Hydrox/Mg Hydrox/Simethicone (Alum-Mag Hydroxide-Simethicone [phone]/5ml Oral Liqd 30 Ml) 30 ml PO Q4H PRN PRN Reason: Indigestion Aspirin (Aspirin 81 Mg Tab Chew) 81 mg PO QDAY PENDING SALE TO [facility] Atorvastatin Calcium (Atorvastatin 40 Mg Tab) 40 mg PO QHS PENDING SALE TO [facility] Hydralazine HCl (Hydralazine 20 Mg/1 Ml Inj) 5 mg IV Q4H PRN PRN Reason: Hypertension Insulin Human Regular (Insulin Regular, Human 100 Units/1 Ml) 0 units SUB-Q ACHS PENDING SALE TO [facility]; Protocol Last Admin: 06/08/20 12:34 Dose: Not Given Documented by: Magnesium Hydroxide (Magnesium Hydroxide (Mom) Oral Liqd Udc) 30 ml PO Q4H PRN PRN Reason: Constipation Metoclopramide HCl (Metoclopramide 10 Mg/2 Ml Inj) 10 mg IV Q6H PRN PRN Reason: Nausea And Vomiting Morphine Sulfate (Morphine 2 Mg/1 Ml Inj) 2 mg IV Q4H PRN PRN Reason: Pain, Moderate (4-6) Nitroglycerin (Nitroglycerin 0.4 Mg Tab Subl) 0.4 mg SL .Q5MIN PRN PRN Reason: Chest Pain Last Admin: 06/08/20 05:03 Dose: 0.4 mg Documented by: Ondansetron HCl (Ondansetron 4 Mg/2 Ml Inj) 4 mg IV Q8H PRN PRN Reason: Nausea And Vomiting Pantoprazole Sodium (Pantoprazole 40 Mg Tab) 40 mg PO QDAY PENDING SALE TO [facility] Last Admin: 06/08/20 12:34 Dose: 40 mg Documented by: Senna (Sennosides 8.6 Mg Tab) 8.6 mg PO Q12HR PRN PRN Reason: Constipation Sodium Chloride (Sodium Chloride 0.9% 10 Ml Flush Syringe) 10 ml IV BID PENDING SALE TO [facility] Last Admin: 06/08/20 12:34 Dose: 10 ml Documented by: Sodium Chloride (Sodium Chloride 0.9% 10 Ml Flush Syringe) 10 ml IV PRN PRN PRN Reason: LINE FLUSH Trazodone HCl (Trazodone 50 Mg Tab) 50 mg PO QHS PRN PRN Reason: Insomnia Review of Systems Constitutional: no weight loss, no weight gain, no fever, no chills, no sweats Ears, nose, mouth and throat: no ear pain, no ear discharge, no nose pain, no n bela congestion, no nasal discharge Cardiovascular: chest pain, no orthopnea, no palpitations, no rapid/irregular heart beat, no edema, no syncope, no lightheadedness, no shortness of breath, no dyspnea on exertion Respiratory: no cough, no cough with sputum, no shortness of breath, no dyspnea on exertion Physical Examination Last Vital Signs Temp 97.8 F 06/08/20 04:59 Pulse 61 06/08/20 05:27 Resp 17 06/08/20 10:45 BP 144/91 06/08/20 08:35 Pulse Ox 98 06/08/20 10:45 General appearance: no acute distress HEENT: Positive: PERRL, Normocephaly, Mucus Membranes Moist Neck: Positive: neck supple, trachea midline Cardiac: Positive: Reg Rate and Rhythm Lungs: Positive: clear to auscultation, Normal Breath Sounds Neuro: Positive: Grossly Intact Abdomen: Positive: Unremarkable, Soft Skin: Negative: Rash, Wound Musculoskeletal: other (Patient is complaining of pain that is caused by light palpation of the left sternal border and by movement of her left arm and by shallow and deep inspirations) Extremities: Present: upper extr. pulses, lower extr. pulses. Absent: edema Results 06/08/20 06:08 06/08/20 06:08 Cardiac Enzymes 06/07/20 Range/Units 17:57 AST 20 (5-40) units/L Coagulation 06/07/20 Range/Units 18:47 PT 12.5 (12.2-14.9) Sec. INR 0.94 (0.87-1.13) APTT 26.4 (24.2-36.6) Sec. Lipids 06/08/20 Range/Units 06:08 Triglycerides 103 (2-149) mg/dL Cholesterol 152 (50-199) mg/dL HDL Cholesterol 60 H (40-59) mg/dL Cholesterol/HDL Ratio 2.53 % CBC 06/07/20 06/08/20 Range/Units 17:57 06:08 WBC 7.2 5.2 (4.5-11.0) K/mm3 RBC 4.48 4.34 (3.65-5.03) M/mm3 Hgb 13.7 13.3 (10.1-14.3) gm/dl Hct 40.2 39.3 (30.3-42.9) % Plt Count 300 266 (140-440) K/mm3 Lymph # (Auto) 2.8 2.2 (1.2-5.4) K/mm3 [place] # (Auto) 0.5 0.5 (0.0-0.8) K/mm3 Eos # (Auto) 0.3 0.4 (0.0-0.4) K/mm3 Baso # (Auto) 0.1 0.0 (0.0-0.1) K/mm3 Comprehensive Metabolic Panel 06/07/20 06/08/20 Range/Units 17:57 06:08 Sodium 138 135 L (137-145) mmol/L Potassium 4.0 3.6 (3.6-5.0) mmol/L Chloride 101.3 100.0 (98-107) mmol/L Carbon Dioxide 25 29 (22-30) mmol/L BUN 14 10 (7-17) mg/dL Creatinine 0.6 0.6 (0.6-1.2) mg/dL Glucose 79 104 H (65-100) mg/dL Calcium 9.1 8.3 L (8.4-10.2) mg/dL AST 20 (5-40) units/L ALT 23 (7-56) units/L Alkaline Phosphatase 38 (35-129) units/L Total Protein 6.6 (6.3-8.2) g/dL Albumin 4.2 (3.9-5) g/dL - Imaging and Cardiology Echo: report reviewed EKG: report reviewed, image reviewed EKG interpretations - Telemetry EKG Rhythm: Sinus Rhythm - EKG Sinus rhythms and dysrhythmias: sinus rhythm Assessment and Plan Cardiology is consulted for chest pain Telemetry reviewed sinus rhythm 62. No events. Chest pain Twelve-lead ECG reviewed no ST segment elevation normal sinus rhythm. Troponins are negative x3. AMI ruled out. Echocardiogram reviewed (06/08/2020): LVEF 50-60%. Mild diastolic dysfunction is present impaired relaxation pattern. RV SF is normal. Trace TR. RVSP is 18 mmHg. Lexiscan MPI reviewed (06/08/2020): Negative ischemia. Recommend anti-inflammatory therapy Elevated D-dimer D-dimers minimally elevated nonspecific. CTA chest is negative for pulmonary thromboembolism. Diabetes Management per primary team Hypertension Patient is currently normotensive. Follow-up with primary care is recommended DVT prophylaxis Patient is currently in stable cardiac status. Chest pain appears to be of a noncardiac etiology. Patient may discharge from cardiac standpoint. Recommend follow-up with Dr. Puentes within 1 to 2 weeks of discharge. #[phone] This patient was seen in conjunction with Dr Puentes who agrees with this assessment and plan of care - Patient Problems (1) Chest pain Current Visit: Yes Status: Acute (2) DVT prophylaxis Current Visit: Yes Status: Acute (3) Hyperlipidemia Current Visit: Yes Status: Chronic (4) Hypertension Current Visit: Yes Status: Chronic (5) Diabetes Current Visit: Yes Status: Chronic (6) Migraines Current Visit: No Status: Chronic
--- NOTE | 2020-06-08 13:55 | Electrocardiograph Report ---
[facility] Test Date: 2020-06-07 Test Time: 17:32:41 Pat Name: CUBA AHMADI Department: Room: A489 1 Gender: F Shaper Set Up Operator: ANDREW : 1975 Requested By: ORTIZ GANDHI Order Number: [id number] Reading MD: Claus Benoit Measurements Intervals [place] Rate: 82 P: 63 CT: 184 QRS: 14 QRSD: 99 T: 49 QT: 383 QTc: 449 Interpretive Statements Sinus rhythm Probable left atrial enlargement No previous ECG available for comparison Electronically Signed On 06-08-2020 13:54:40 EDT by Claus Benoit
--- NOTE | 2020-06-08 14:02 | Electrocardiograph Report ---
[facility] Test Date: 2020-06-08 Test Time: 10:36:43 Pat Name: CUBA AHMADI Department: Room: A489 1 Gender: F Non Destructive Evaluation Technician: ALL : 1975 Requested By: ORTIZ GANDHI Order Number: [id number] Reading MD: Claus Benoit Measurements Intervals [place] Rate: 64 P: 35 [place]: 192 QRS: 14 QRSD: 99 T: 49 QT: 418 QTc: 429 Interpretive Statements Sinus rhythm Atrial premature complex Compared to ECG 06/07/2020 17:32:41 Atrial premature complex(es) now present Electronically Signed On 06-08-2020 14:02:06 EDT by Claus Benoit
[2020-06-08] MEDS ORDERED: NAPROXEN 500 MG TAB PO SCH (22:00)
[2020-06-09] MEDS ORDERED: ASPIRIN 81 MG TAB CHEW PO SCH (10:00)
== END 2020-06-08 14:52 | disposition home or self-care (01) ==
LOC: ED 17:13 → 4A 06-08 03:07
PROVIDERS: ADMIT Internal Medicine Geriatric Medicine; ATTEND Internal Medicine
DX: I20.9 Angina pectoris, unspecified (principal); I10 Essential (primary) hypertension; E11.9 Type 2 diabetes mellitus without complications; R07.89 Other chest pain; R06.02 Shortness of breath; E78.5 Hyperlipidemia, unspecified; E66.01 Morbid (severe) obesity due to excess calories; M19.90 Unspecified osteoarthritis, unspecified site; G43.909 Migraine, unspecified, not intractable, without status migrainosus; R77.8 Other specified abnormalities of plasma proteins; Z68.42 Body mass index [BMI] 45.0-49.9, adult; Z87.442 Personal history of urinary calculi; Z86.73 Personal history of transient ischemic attack (TIA), and cerebral infarction without residual deficits; Z90.710 Acquired absence of both cervix and uterus; Z90.49 Acquired absence of other specified parts of digestive tract; Z98.890 Other specified postprocedural states; Z79.82 Long term (current) use of aspirin; Z79.4 Long term (current) use of insulin
CPT/HCPCS: 36415; 71046; 71275; 78452; 80048; 80053; 80061; 81001; 82962; 83036; 83735; 83880; 84484; 85025; 85379; 85610; 85730; 93005; 93017; 93306; 96374; 96375; 99291; A9502; G0378; J2270; J2405; J2785; Q9967